=== PATIENT | male | born 1950 | race Caucasian/White ===

== ENCOUNTER 2016-11-07 15:15 | Outpatient (RCR) | payer MEDICARE, OTHER | END 2016-11-14 15:09 | LOC: WSPT 15:15 | DX: H81.12 Benign paroxysmal vertigo, left ear (principal); Z98.890 Other specified postprocedural states | CPT/HCPCS: G8978-GP; G8979-GP; G8980-GP ==

== ENCOUNTER → 2017-04-16 | Outpatient (CLI) | payer MEDICARE, OTHER | LOC: COL.RAD 07:20 | DX: N50.3 Cyst of epididymis (principal) ==

== ENCOUNTER 2018-05-22 09:45 | Outpatient (RCR) | payer MEDICARE, OTHER | END 2018-05-22 10:34 | disposition home or self-care (01) | LOC: WSPT 09:45 | DX: M54.5 Low back pain (principal) ==

== ENCOUNTER → 2019-10-28 | Outpatient (CLI) | payer MEDICARE, OTHER ==
[~2019-10-28] MED LIST: ALPHAGAN P 15 M15 ML OU; ASPIRIN E.C. 8181 MG PO; BENICAR40 MG PO; COMPLETE SENIOR1 TA1 PO; LIPITOR 10MG10 MG PO; OCUVITE1 TA1 PO; PRILOSEC10 MG PO; PROSCAR 5MG5 MG PO; SYNTHROID0.05 MG/TA PO; TRAVATAN Z 2.52.5 ML OD; TRICOR145 MG PO; ZOLOFT 50MG50 MG PO
== END ==
LOC: COL.RAD
DX: N18.3 Chronic kidney disease, stage 3 (moderate) (principal)

== ENCOUNTER → 2020-06-30 | Outpatient (CLI) | payer MEDICARE, OTHER | LOC: MC.RAD 12:57 | DX: N62 Hypertrophy of breast (principal) ==

== ENCOUNTER 2021-09-27 14:38 | Emergency (ER) | payer MEDICARE, OTHER ==
[~2021-09-27] VITALS: Ht 190.5 cm; Wt 115.9 kg
[2021-09-27 14:46] VITALS: TEMP 97.4
[2021-09-27 15:17] LABS: BASO # 0.1 K/mm3 (0.0-0.2); BASO % 0.7 % (0.0-2.0); EOS # 0.2 K/mm3 (0.0-0.7); EOS % 1.5 % (0.0-4.0); GRAN # 6.6 K/mm3 (1.4-6.5); LYMPH # 1.8 K/mm3 (1.2-3.4); MEAN CELL VOLUME 93 fl (80.0-100.0); MEAN CORPUSCULAR HEMOGLOBIN 32 pg (27-31); MEAN CORPUSCULAR HGB CONC 34 g/dl (33.0-37.0); MEAN PLATELET VOLUME 11.1 fl (7.4-10.4); MONO % 10.5 % (1.7-9.3); PLATELET COUNT 125 K/mm3 (130-400); RED BLOOD COUNT 5.66 M/mm3 (4.20-5.60); REDCELL DISTRIBUTION WIDTH-CV 12.9 % (11.5-14.5)
[2021-09-27 15:18] LABS: HEMATOCRIT 52.7 % (42.0-52.0)
[2021-09-27 15:22] LABS: INR 1.2 (0.8-3.0); PROTHROMBIN TIME 13.3 SECONDS (9.7-12.8)
[2021-09-27 15:31] LABS: ALBUMIN 3.9 gm/dL (3.4-4.8); BILIRUBIN,TOTAL 1.6 mg/dL (0.2-1.2); CALCIUM 9.4 mg/dL (8.4-10.2); CREATININE, serum 1.62 mg/dL (0.72-1.25); POTASSIUM 4.5 mmol/L (3.5-4.5); TOTAL PROTEIN 7.3 gm/dL (6.2-8.1)
[2021-09-27 15:36] LABS: TROPONIN-I 0.023 ng/mL (0.00-0.033)
[2021-09-27 17:25] LABS: PARTIAL THROMBOPLASTIN TIME 32.8 SECONDS (26.0-37.0)
[2021-09-27 18:45] VITALS: BP 155/91; PULSE 72
== END 2021-09-27 18:40 | disposition short-term general hospital (02) ==
LOC: COL.ER 14:38
PROVIDERS: Emergency Medicine
DX: I26.99 Other pulmonary embolism without acute cor pulmonale (principal); I82.491 Acute embolism and thrombosis of other specified deep vein of right lower extremity; I51.9 Heart disease, unspecified
CPT/HCPCS: J1644; J7030; Q9967

== ENCOUNTER → 2022-05-07 | Outpatient (CLI) | payer MEDICARE, OTHER | LOC: COL.RAD 04-25 15:00 | DX: K76.0 Fatty (change of) liver, not elsewhere classified (principal); K44.9 Diaphragmatic hernia without obstruction or gangrene | CPT/HCPCS: Q9967 ==